=== PATIENT | female | born 1985 | race Caucasian/White ===

== ENCOUNTER → 2019-02-07 | Outpatient (CLI) | payer OTHER ==
[~2019-02-07] MED LIST: ADDERALL XR25 MG PO; ADDERALL XR30 MG PO; BIRTH CONTROL PILLS PO; CELEXA10 MG PO; CELEXA40 MG PO; CLEOCIN HC150 MG/CAP PO; DEPO-PROVER400 MG/ML IM; EFFEXOR XR75 MG/CAP PO; ELMIRON100 MG PO; INDERAL 10MG10 MG PO; INDERAL 20MG20 MG PO; INDERAL10 MG PO; ISENTRESS400 MG; LEVSIN0.125 M1 PO; LOESTRIN1.5/30 21DAY PO; MIRENA52 MG IU; MUCINEX DM 30 M1 TE1 PO; MULTIPLE VITAMI1 TAB PO; NO HOME MEDICATIONS; OMNICEF 300MG300 MG PO; PRENATAL1 TA1 PO; PRENATAL1 TA3 PO; RITALIN10 MG PO; SUDAFED60 MG PO; TYLENOL 325MG325 MG PO; ULTRAM 50MG TAB50 MG PO; VIREAD; VITAMIN C PUR1000 MG; ZOFRAN4 M1 PO; [UNRECOGNIZED DRUG - OTHER] PO
== END ==
LOC: COL.RAD 07:52
DX: M51.37 Other intervertebral disc degeneration, lumbosacral region (principal); M89.38 Hypertrophy of bone, other site

== ENCOUNTER 2019-09-15 20:29 | Emergency (ER) | payer OTHER ==
[~2019-09-15] VITALS: Ht 170.2 cm; Wt 86.4 kg
[2019-09-15 20:49] VITALS: BP 127/89; TEMP 98.2
[2019-09-15 22:03] LABS: BASO # 0.1 (0.0-0.2); BASO % 0.7 % (0.0-2.0); EOS # 0.3 (0.0-0.7); EOS % 3.2 % (0-4.0); GRAN # 4.4 (1.4-6.5); GRAN % 53.3 % (42.2-75.2); HEMATOCRIT 38.7 % (37.0-47.0); HEMOGLOBIN 12.6 g/dl (12.5-16.0); LYMPH # 2.7 (1.2-3.4); LYMPH % 33.6 % (20.0-51.0); MEAN CELL VOLUME 88 fl (80.0-100.0); MEAN CORPUSCULAR HEMOGLOBIN 29 pg (27.0-31.0); MEAN CORPUSCULAR HGB CONC 33 g/dl (33.0-37.0); MEAN PLATELET VOLUME 11.7 fl (7.4-10.4); MONO # 0.7 (0.1-0.6); MONO % 8.8 % (1.7-9.3); PLATELET COUNT 215 K/mm3 (130-400); RED BLOOD COUNT 4.42 M/mm3 (4.10-5.30); REDCELL DISTRIBUTION WIDTH-CV 11.9 % (11.5-14.5)
[2019-09-15 22:59] VITALS: PULSE 73
== END 2019-09-15 23:00 | disposition home or self-care (01) ==
LOC: COL.ER 20:29
PROVIDERS: Physician Assistant
DX: G89.18 Other acute postprocedural pain (principal); M25.561 Pain in right knee; Z98.890 Other specified postprocedural states
CPT/HCPCS: J1650

== ENCOUNTER → 2019-09-16 | Outpatient (CLI) | payer OTHER | LOC: COL.VAS 08:55 | DX: M79.89 Other specified soft tissue disorders (principal); M79.661 Pain in right lower leg ==

== ENCOUNTER → 2019-12-10 | Outpatient (CLI) | payer OTHER | LOC: COL.ER 08:33 | DX: Z20.828 Contact with and (suspected) exposure to other viral communicable diseases (principal) ==

== ENCOUNTER → 2019-12-18 | Outpatient (CLI) | payer OTHER | LOC: COL.RAD 07:24 | DX: G43.909 Migraine, unspecified, not intractable, without status migrainosus (principal) ==

== ENCOUNTER 2020-03-07 19:19 | Emergency (ER) | payer OTHER ==
[~2020-03-07] VITALS: Ht 170.2 cm; Wt 95.5 kg
[2020-03-07 19:27] VITALS: TEMP 97.9
[2020-03-07 21:06] VITALS: BP 138/87; PULSE 88
== END 2020-03-07 21:07 | disposition home or self-care (01) ==
LOC: COL.ER 19:19
DX: G43.909 Migraine, unspecified, not intractable, without status migrainosus (principal); Z88.6 Allergy status to analgesic agent
CPT/HCPCS: J1630; J3030

== ENCOUNTER 2020-03-08 11:54 | Emergency (ER) | payer OTHER ==
[~2020-03-08] VITALS: Ht 170.2 cm; Wt 95.5 kg
[2020-03-08 12:17] VITALS: BP 144/80; PULSE 101; TEMP 98.1
== END 2020-03-08 13:30 | disposition left against medical advice (07) ==
LOC: COL.ER 11:54
DX: G43.909 Migraine, unspecified, not intractable, without status migrainosus (principal); Z53.21 Procedure and treatment not carried out due to patient leaving prior to being seen by health care provider

== ENCOUNTER → 2020-10-07 | Outpatient (CLI) | payer OTHER | LOC: COL.RAD 11:38 | DX: N83.8 Other noninflammatory disorders of ovary, fallopian tube and broad ligament (principal); Z98.82 Breast implant status; Z90.710 Acquired absence of both cervix and uterus; Z90.49 Acquired absence of other specified parts of digestive tract | CPT/HCPCS: Q9967 ==

== ENCOUNTER → 2020-12-09 | Outpatient (CLI) | payer OTHER | LOC: MC.RAD 08:19 | DX: N63.20 Unspecified lump in the left breast, unspecified quadrant (principal) ==

== ENCOUNTER 2021-05-13 07:55 | Outpatient (CLI) | payer OTHER ==
[~2021-05-13] VITALS: Ht 170.3 cm; Wt 108.0 kg
[2021-05-13 08:52] LABS: HEMATOCRIT 40.8 % (37.0-47.0); HEMOGLOBIN 13.6 g/dl (12.5-16.0); MEAN CELL VOLUME 86 fl (80.0-100.0); MEAN CORPUSCULAR HEMOGLOBIN 29 pg (27-31); MEAN CORPUSCULAR HGB CONC 33 g/dl (33.0-37.0); MEAN PLATELET VOLUME 11.5 fl (7.4-10.4); PLATELET COUNT 208 K/mm3 (130-400); RED BLOOD COUNT 4.72 M/mm3 (4.10-5.30); REDCELL DISTRIBUTION WIDTH-CV 12.1 % (11.5-14.5)
[2021-05-13] MEDS ORDERED: PROAIR HFA0.09 MG/AC IH (08:57)
[2021-05-13] MEDS ORDERED: PREDNISONE10 MG PO (08:58)
[2021-05-13] MEDS ORDERED: PROTONIX 40MG T40 MG PO (08:58)
[2021-05-13 09:16] VITALS: BP 115/76; PULSE 114; TEMP 98.2
[2021-05-13 09:41] VITALS: BP 118/71; PULSE 102
--- NOTE | 2021-05-13 10:38 | NUR ---
Discharge instructions given to pt.pt verbalizes understanding.Pt escorted out by this nurse.
== END 2021-05-13 10:39 ==
LOC: COL.CAR 07:55
PROVIDERS: Internal Medicine Interventional Cardiology
DX: I47.1 Supraventricular tachycardia (principal); R07.89 Other chest pain; A18.01 Tuberculosis of spine; R00.2 Palpitations; Z86.16 Personal history of COVID-19
CPT/HCPCS: 27886; C1764

== ENCOUNTER 2021-11-04 10:03 | Day surgery (SDC) | payer OTHER ==
[~2021-11-04] VITALS: Ht 170.3 cm; Wt 91.6 kg
[~2021-11-04 10:03] MED LIST changes: +PREDNISONE10 MG PO; +PROAIR HFA0.09 MG/AC IH; +PROTONIX 40MG T40 MG PO
[2021-11-04 12:35] VITALS: BP 98/77; PULSE 71; TEMP 98.2
[2021-11-04 12:50] VITALS: BP 99/73; PULSE 69
[2021-11-04 12:54] VITALS: BP 116/78; PULSE 88; TEMP 97.4
[2021-11-04 13:05] VITALS: BP 96/69; PULSE 68
--- NOTE | 2021-11-04 15:17 | NUR ---
1235 PT RETURNED TO [facility] VIA CART. TRANSFERRED TO CHAIR WITH RN ASSIST. ALERT AND ORIENTED. MONITORS ATTACHED, INTERVALS AND ALARMS SET. VSS, LOW BP NORMAL PER PT. PT DENIES PAIN OR NAUSEA. FOOD AND DRINK PROVIDED. CALL LIGHT IN REACH. 1250 VSS. PT DENIES DISCOMFORT. TOLERATING FOOD AND DRINK WELL. 1305 VSS. PT DENIES DISCOMFORT. REVIEWED DISCHARGE INSTRUCTIONS AND EDUCATION MATERIAL, ANSWERED ALL QUESTIONS. IV REMOVED WITHOUT COMPLICATIONS. PT ALLOWED TO DRESS. 1350 TRANSFERRED PT VIA WHEELCHAIR TO PERSONAL VEHICLE TO BE DRIVEN HOME .
[2021-11-04 16:55] VITALS: BP 98/67; PULSE 67
== END 2021-11-04 13:50 | disposition home or self-care (01) ==
LOC: SDCO 10:03
DX: K31.7 Polyp of stomach and duodenum (principal); K29.50 Unspecified chronic gastritis without bleeding; K59.00 Constipation, unspecified; R19.7 Diarrhea, unspecified; K29.61 Other gastritis with bleeding
CPT/HCPCS: J2704; J7120

== ENCOUNTER 2023-09-02 10:11 | Emergency (ER) | payer OTHER ==
[~2023-09-02] VITALS: Ht 167.6 cm; Wt 102.3 kg
[2023-09-02 10:21] VITALS: BP 111/75; TEMP 98.5
[2023-09-02 12:02] VITALS: PULSE 89
== END 2023-09-02 12:03 | disposition home or self-care (01) ==
LOC: COL.ER 10:11
DX: S80.02XA Contusion of left knee, initial encounter (principal); S80.01XA Contusion of right knee, initial encounter; S50.812A Abrasion of left forearm, initial encounter; Z98.890 Other specified postprocedural states; Z96.698 Presence of other orthopedic joint implants; W18.40XA Slipping, tripping and stumbling without falling, unspecified, initial encounter; Y93.01 Activity, walking, marching and hiking; Y92.481 Parking lot as the place of occurrence of the external cause